=== PATIENT | female | born 1985 ===

== ENCOUNTER 2024-09-24 23:46 | Emergency (ER) | payer OTHER ==
[~2024-09-24] VITALS: Ht 167.6 cm; Wt 90.0 kg
[2024-09-25] MEDS: IBUPROFEN 600 MG TABLET PO ONE (00:17)
[2024-09-25] MEDS: ACETAMINOPHEN 500 MG TABLET PO ONE (00:18)
[2024-09-25 01:27] VITALS: BP 133/74; PULSE 74; RESP 17; TEMP 97.6; O2SAT 98
== END 2024-09-25 02:06 ==
LOC: EMS 23:46
DX: S83.91XA Sprain of unspecified site of right knee, initial encounter (principal); M25.551 Pain in right hip; Z65.3 Problems related to other legal circumstances; W19.XXXA Unspecified fall, initial encounter; Y93.E1 Activity, personal bathing and showering; Y92.89 Other specified places as the place of occurrence of the external cause; Y99.8 Other external cause status
CPT/HCPCS: 73502; 99284